=== PATIENT | male | born 1980 | race Caucasian/White ===

== ENCOUNTER 2023-10-21 03:23 | Emergency (ER) | payer BC, OTHER ==
[2023-10-21 04:15] LABS: BASOPHILS ABSOLUTE AUTO 0.04 K/uL (0.00-0.20); BASOPHILS PERCENT AUTO 0.5 % (0.0-1.0); EOSINOPHILS ABSOLUTE AUTO 0.22 K/uL (0.00-0.45); EOSINOPHILS PERCENT AUTO 2.9 % (0.0-6.0); HEMATOCRIT 42.1 % (42.0-52.0); HEMOGLOBIN 14.9 g/dL (14.0-18.0); IMMATURE GRAN ABSOLUTE AUTO 0.03 K/uL (0.00-0.05); IMMATURE GRAN PERCENT AUTO 0.4 % (0.0-0.4); LYMPHOCYTES ABSOLUTE AUTO 2.02 K/uL (1.00-4.80); LYMPHOCYTES PERCENT AUTO 26.3 % (24.0-44.0); MEAN CORPUSCULAR HEMOGLOBIN 29.5 pg (28.0-32.0); MEAN CORPUSCULAR HGB CONC 35.4 g/dL (32.0-36.0); MEAN CORPUSCULAR VOLUME 83.4 fL (83.0-99.0); MEAN PLATELET VOLUME 9.6 fL (9.4-12.4); MONOCYTES ABSOLUTE AUTO 0.87 K/uL (0.00-0.80); MONOCYTES PERCENT AUTO 11.3 % (0.0-8.0); NEUTROPHILS ABSOLUTE AUTO 4.51 K/uL (1.80-7.70); NEUTROPHILS PERCENT AUTO 58.6 % (41.0-71.0); PLATELET COUNT,PLT 222 K/uL (150-400); RED BLOOD CELL COUNT 5.05 M/uL (4.52-5.90); WHITE BLOOD CELL COUNT,WBC 7.69 K/uL (3.9-11.3)
[2023-10-21 04:34] LABS: A/G RATIO 0.9 (0.9-1.6); ALBUMIN 3.9 g/dL (3.4-5.0); BILIRUBIN TOTAL 0.7 mg/dL (0.2-1.0); CALCIUM 8.8 mg/dL (8.5-10.1); CREATININE 1.1 mg/dL (0.8-1.3); EST CRCL DRUG DOSING (CG) 91.25 mL/min; POTASSIUM,K 3.7 mmol/L (3.5-5.1); PROTEIN TOTAL,TP 8.1 g/dL (6.4-8.2)
[2023-10-21] MEDS: Iopamidol 755 MG/ML 500 ML Multipack Bottle IVPUSH STA (04:59)
[2023-10-21] MEDS: Amoxicillin/Clavulanate K 875-125 MG Tab PO ONE (05:43)
== END 2023-10-21 05:47 | disposition home or self-care (01) ==
LOC: MW.ED 03:23
DX: K57.32 Diverticulitis of large intestine without perforation or abscess without bleeding (principal); F17.210 Nicotine dependence, cigarettes, uncomplicated; Z79.899 Other long term (current) drug therapy
CPT/HCPCS: 36415; 74177; 80053; 85025; 99284; A9270; Q9967

== ENCOUNTER 2023-11-06 11:45 | Emergency (ER) | payer OTHER ==
[2023-11-06] MEDS: Sodium Chloride 0.9% 1,000 ML IV STA (13:12)
[2023-11-06 13:17] LABS: BASOPHILS ABSOLUTE AUTO 0.02 K/uL (0.00-0.20); BASOPHILS PERCENT AUTO 0.2 % (0.0-1.0); EOSINOPHILS ABSOLUTE AUTO 0.27 K/uL (0.00-0.45); EOSINOPHILS PERCENT AUTO 2.8 % (0.0-6.0); HEMOGLOBIN 14.6 g/dL (14.0-18.0); IMMATURE GRAN ABSOLUTE AUTO 0.02 K/uL (0.00-0.05); IMMATURE GRAN PERCENT AUTO 0.2 % (0.0-0.4); LYMPHOCYTES ABSOLUTE AUTO 1.13 K/uL (1.00-4.80); LYMPHOCYTES PERCENT AUTO 11.7 % (24.0-44.0); MEAN CORPUSCULAR HEMOGLOBIN 29.7 pg (28.0-32.0); MEAN CORPUSCULAR HGB CONC 34.8 g/dL (32.0-36.0); MEAN CORPUSCULAR VOLUME 85.5 fL (83.0-99.0); MEAN PLATELET VOLUME 9.6 fL (9.4-12.4); MONOCYTES ABSOLUTE AUTO 1.26 K/uL (0.00-0.80); MONOCYTES PERCENT AUTO 13.1 % (0.0-8.0); NEUTROPHILS ABSOLUTE AUTO 6.95 K/uL (1.80-7.70); PLATELET COUNT,PLT 251 K/uL (150-400); RED BLOOD CELL COUNT 4.91 M/uL (4.52-5.90); WHITE BLOOD CELL COUNT,WBC 9.65 K/uL (3.9-11.3)
[2023-11-06 13:51] LABS: A/G RATIO 0.7 (0.9-1.6); ALBUMIN 3.2 g/dL (3.4-5.0); CALCIUM 9.1 mg/dL (8.5-10.1); CARBON DIOXIDE,CO2 26.7 mmol/L (21.0-32.0); CREATININE 1.2 mg/dL (0.8-1.3); EST CRCL DRUG DOSING (CG) 81.01 mL/min; POTASSIUM,K 3.8 mmol/L (3.5-5.1); PROTEIN TOTAL,TP 7.6 g/dL (6.4-8.2)
== END 2023-11-06 14:24 | disposition home or self-care (01) ==
LOC: MW.ED 11:45
DX: R19.7 Diarrhea, unspecified (principal); Z75.8 Other problems related to medical facilities and other health care
CPT/HCPCS: 36415; 80053; 83690; 85025; 96360; 99284; J7030

== ENCOUNTER 2023-11-17 20:33 | Emergency (ER) | payer OTHER ==
[2023-11-17 21:19] LABS: BASOPHILS ABSOLUTE AUTO 0.02 K/uL (0.00-0.20); BASOPHILS PERCENT AUTO 0.2 % (0.0-1.0); EOSINOPHILS PERCENT AUTO 4.7 % (0.0-6.0); HEMATOCRIT 36.9 % (42.0-52.0); HEMOGLOBIN 12.7 g/dL (14.0-18.0); IMMATURE GRAN ABSOLUTE AUTO 0.07 K/uL (0.00-0.05); IMMATURE GRAN PERCENT AUTO 0.7 % (0.0-0.4); LYMPHOCYTES ABSOLUTE AUTO 1.75 K/uL (1.00-4.80); LYMPHOCYTES PERCENT AUTO 16.5 % (24.0-44.0); MEAN CORPUSCULAR HEMOGLOBIN 29.1 pg (28.0-32.0); MEAN CORPUSCULAR HGB CONC 34.4 g/dL (32.0-36.0); MEAN CORPUSCULAR VOLUME 84.6 fL (83.0-99.0); MEAN PLATELET VOLUME 8.9 fL (9.4-12.4); MONOCYTES ABSOLUTE AUTO 1.11 K/uL (0.00-0.80); MONOCYTES PERCENT AUTO 10.4 % (0.0-8.0); NEUTROPHILS ABSOLUTE AUTO 7.18 K/uL (1.80-7.70); NEUTROPHILS PERCENT AUTO 67.5 % (41.0-71.0); PLATELET COUNT,PLT 341 K/uL (150-400); RED BLOOD CELL COUNT 4.36 M/uL (4.52-5.90); WHITE BLOOD CELL COUNT,WBC 10.63 K/uL (3.9-11.3)
[2023-11-17 21:41] LABS: A/G RATIO 0.6 (0.9-1.6); ALBUMIN 2.5 g/dL (3.4-5.0); BILIRUBIN TOTAL 0.4 mg/dL (0.2-1.0); CALCIUM 8.7 mg/dL (8.5-10.1); CARBON DIOXIDE,CO2 27.4 mmol/L (21.0-32.0); CREATININE 1.3 mg/dL (0.8-1.3); EST CRCL DRUG DOSING (CG) 77.21 mL/min; POTASSIUM,K 3.6 mmol/L (3.5-5.1); PROTEIN TOTAL,TP 6.9 g/dL (6.4-8.2)
== END 2023-11-17 22:49 | disposition home or self-care (01) ==
LOC: MW.ED 20:33
DX: R19.7 Diarrhea, unspecified (principal)
CPT/HCPCS: 36415; 80053; 85025; 99284

== ENCOUNTER 2023-11-23 21:37 | Inpatient (IN) | payer OTHER ==
[2023-11-23] MEDS: Sodium Chloride 0.9% 10 ML Syringe FLUSH PRN (22:32)
[2023-11-23] MEDS: Sodium Chloride 0.9% 2.5 ML Syringe FLUSH PRN (22:32)
[2023-11-23] MEDS: Sodium Chloride 0.9% 1,000 ML IV STA ×2 (22:32→23:41)
[2023-11-23 22:33] LABS: HEMATOCRIT 33.1 % (42.0-52.0); HEMOGLOBIN 11.4 g/dL (14.0-18.0); MEAN CORPUSCULAR HEMOGLOBIN 29.2 pg (28.0-32.0); MEAN CORPUSCULAR HGB CONC 34.4 g/dL (32.0-36.0); MEAN CORPUSCULAR VOLUME 84.7 fL (83.0-99.0); MEAN PLATELET VOLUME 8.8 fL (9.4-12.4); PLATELET COUNT,PLT 398 K/uL (150-400); RED BLOOD CELL COUNT 3.91 M/uL (4.52-5.90)
[2023-11-23 23:04] LABS: A/G RATIO 0.5 (0.9-1.6); ALBUMIN 2.1 g/dL (3.4-5.0); BILIRUBIN TOTAL 0.5 mg/dL (0.2-1.0); CALCIUM 8.6 mg/dL (8.5-10.1); CARBON DIOXIDE,CO2 27.9 mmol/L (21.0-32.0); CREATININE 1.3 mg/dL (0.8-1.3); EST CRCL DRUG DOSING (CG) 77.21 mL/min; POTASSIUM,K 3.5 mmol/L (3.5-5.1); PROTEIN TOTAL,TP 6.7 g/dL (6.4-8.2)
[2023-11-23 23:08] LABS: BAND PERCENT MAN 17 %; LYMPHOCYTES ABSOLUTE MAN 1.79 K/uL (1.00-4.80); LYMPHOCYTES PERCENT MAN 16 % (24-44); MONOCYTES ABSOLUTE MAN 2.13 K/uL (0.00-0.80); MONOCYTES PERCENT MAN 19 % (0-8); SEG NEUTROPHILS PERCENT MAN 42 % (41-71)
[2023-11-23 23:09] LABS: EOSINOPHILS ABSOLUTE MAN 0.45 K/uL (0.00-0.45); EOSINOPHILS PERCENT MAN 4 % (0-6); METAMYELOCYTE ABSOLUTE MAN 0.11; METAMYELOCYTE PERCENT MAN 1 %; MYELOCYTE ABSOLUTE MAN 0.11; MYELOCYTE PERCENT MAN 1 %
[2023-11-23 23:19] LABS: LACTIC ACID 3.4 mmol/L (0.4-2.0)
[2023-11-23] MEDS: Iopamidol 755 MG/ML 500 ML Multipack Bottle IVPUSH ONE (23:32)
[2023-11-24] MEDS ORDERED: Morphine 2 MG/ML SYRINGE IVPUSH PRN (02:04)
[2023-11-24 02:59] LABS: APPEARANCE,URINE CLEAR; BILIRUBIN,URINE NEGATIVE (NEGATIVE); COLOR,URINE YELLOW; GLUCOSE,URINE NEGATIVE (NEGATIVE); KETONES,URINE NEGATIVE (NEGATIVE); LEUKOCYTE ESTERASE,URINE NEGATIVE (NEGATIVE); NITRITE,URINE NEGATIVE (NEGATIVE); OCCULT BLOOD,URINE NEGATIVE (NEGATIVE); PH,URINE 5.5 (5.0-8.0); PROTEIN,URINE NEGATIVE (NEGATIVE); UROBILINOGEN,URINE 0.2 EU/dL (<2.0)
[2023-11-24] MEDS: Sodium Chloride 0.9% 1,000 ML IV ONE (03:04)
[2023-11-24] MEDS: Sodium Chloride 0.9% 1,000 ML IV SCH (04:22)
[2023-11-24 06:03] LABS: HEMATOCRIT 29.6 % (42.0-52.0); HEMOGLOBIN 10.2 g/dL (14.0-18.0); MEAN CORPUSCULAR HEMOGLOBIN 29.2 pg (28.0-32.0); MEAN CORPUSCULAR HGB CONC 34.5 g/dL (32.0-36.0); MEAN CORPUSCULAR VOLUME 84.8 fL (83.0-99.0); MEAN PLATELET VOLUME 8.5 fL (9.4-12.4); PLATELET COUNT,PLT 369 K/uL (150-400); RED BLOOD CELL COUNT 3.49 M/uL (4.52-5.90)
[2023-11-24 06:21] LABS: CALCIUM 7.9 mg/dL (8.5-10.1); CARBON DIOXIDE,CO2 26.3 mmol/L (21.0-32.0); EST CRCL DRUG DOSING (CG) 100.38 mL/min; POTASSIUM,K 3.2 mmol/L (3.5-5.1)
[2023-11-24 06:56] LABS: BAND ABSOLUTE MAN 2.22; BAND PERCENT MAN 22 %; EOSINOPHILS PERCENT MAN 2 % (0-6); LYMPHOCYTES ABSOLUTE MAN 2.02 K/uL (1.00-4.80); LYMPHOCYTES PERCENT MAN 20 % (24-44); MONOCYTES ABSOLUTE MAN 2.12 K/uL (0.00-0.80); MONOCYTES PERCENT MAN 21 % (0-8); SEG NEUTROPHILS ABSOLUTE MAN 3.54 K/uL (1.80-7.70); SEG NEUTROPHILS PERCENT MAN 35 % (41-71)
[2023-11-24] MEDS: Potassium Chloride 100 ML IV SCH (08:56)
[2023-11-24] MEDS: Pantoprazole 40 MG in Sodium Chloride 0.9% 10 ML IVPUSH SCH (10:15)
[2023-11-24] MEDS ORDERED: Melatonin 3 MG Tab PO PRN (12:43)
[2023-11-24] MEDS: methylPREDNISolone Sodium Succinate 40 MG/1 ML SDV IVPUSH SCH (15:12)
[2023-11-25] MEDS: Acetaminophen 325 MG Tab PO PRN (03:00)
[2023-11-25 05:57] LABS: HEMATOCRIT 30.7 % (42.0-52.0); HEMOGLOBIN 10.3 g/dL (14.0-18.0); MEAN CORPUSCULAR HEMOGLOBIN 28.6 pg (28.0-32.0); MEAN CORPUSCULAR HGB CONC 33.6 g/dL (32.0-36.0); MEAN CORPUSCULAR VOLUME 85.3 fL (83.0-99.0); MEAN PLATELET VOLUME 8.6 fL (9.4-12.4); PLATELET COUNT,PLT 380 K/uL (150-400); WHITE BLOOD CELL COUNT,WBC 9.95 K/uL (3.9-11.3)
[2023-11-25 06:34] LABS: A/G RATIO 0.4 (0.9-1.6); BILIRUBIN TOTAL 0.5 mg/dL (0.2-1.0); C-REACTIVE PROTEIN 10.52 mg/dL (<0.3); CALCIUM 8.5 mg/dL (8.5-10.1); CARBON DIOXIDE,CO2 26.6 mmol/L (21.0-32.0); CREATININE 0.9 mg/dL (0.8-1.3); EST CRCL DRUG DOSING (CG) 111.53 mL/min; MAGNESIUM 2.1 mg/dL (1.8-2.4); POTASSIUM,K 3.8 mmol/L (3.5-5.1); PROTEIN TOTAL,TP 6.7 g/dL (6.4-8.2)
[2023-11-25 06:42] LABS: BAND ABSOLUTE MAN 1.29; BAND PERCENT MAN 13 %; LYMPHOCYTES ABSOLUTE MAN 1.09 K/uL (1.00-4.80); LYMPHOCYTES PERCENT MAN 11 % (24-44); MONOCYTES PERCENT MAN 6 % (0-8); SEG NEUTROPHILS ABSOLUTE MAN 6.97 K/uL (1.80-7.70); SEG NEUTROPHILS PERCENT MAN 70 % (41-71)
[2023-11-25] MEDS: Ondansetron 4 MG Tab.DIS PO PRN (15:36)
[2023-11-25] MEDS: methylPREDNISolone Sodium Succinate 40 MG/1 ML SDV IVPUSH SCH (21:04)
[2023-11-26 05:40] LABS: HEMATOCRIT 28.3 % (42.0-52.0); HEMOGLOBIN 9.6 g/dL (14.0-18.0); MEAN CORPUSCULAR HEMOGLOBIN 28.9 pg (28.0-32.0); MEAN CORPUSCULAR HGB CONC 33.9 g/dL (32.0-36.0); MEAN CORPUSCULAR VOLUME 85.2 fL (83.0-99.0); MEAN PLATELET VOLUME 8.9 fL (9.4-12.4); NRBC ABSOLUTE 0.02 K/uL (0.00-0.02); NRBC PERCENT 0.2 /100WBC (0.0-0.2); PLATELET COUNT,PLT 381 K/uL (150-400); RED BLOOD CELL COUNT 3.32 M/uL (4.52-5.90); WHITE BLOOD CELL COUNT,WBC 10.43 K/uL (3.9-11.3)
[2023-11-26 06:12] LABS: A/G RATIO 0.5 (0.9-1.6); BILIRUBIN TOTAL 0.3 mg/dL (0.2-1.0); CALCIUM 8.2 mg/dL (8.5-10.1); CARBON DIOXIDE,CO2 28.9 mmol/L (21.0-32.0); EST CRCL DRUG DOSING (CG) 100.38 mL/min; PROTEIN TOTAL,TP 6.2 g/dL (6.4-8.2)
[2023-11-26 06:24] LABS: BAND ABSOLUTE MAN 1.67; BAND PERCENT MAN 16 %; LYMPHOCYTES ABSOLUTE MAN 1.36 K/uL (1.00-4.80); LYMPHOCYTES PERCENT MAN 13 % (24-44); MONOCYTES ABSOLUTE MAN 1.04 K/uL (0.00-0.80); MONOCYTES PERCENT MAN 10 % (0-8); SEG NEUTROPHILS ABSOLUTE MAN 6.36 K/uL (1.80-7.70); SEG NEUTROPHILS PERCENT MAN 61 % (41-71)
[2023-11-26] MEDS: Pantoprazole 40 MG Tab.CR PO SCH (06:54)
== END 2023-11-26 14:20 | disposition home or self-care (01) | DRG 379 ==
LOC: MW.ED 21:37 → MW.MS 11-24 01:26
PROVIDERS: ADMIT Family Medicine; ATTEND Family Medicine
DX: K92.1 Melena (principal); F41.9 Anxiety disorder, unspecified; F32.A Depression, unspecified; M54.9 Dorsalgia, unspecified; G89.29 Other chronic pain; F17.210 Nicotine dependence, cigarettes, uncomplicated
CPT/HCPCS: 36415; 74177; 74177-26; 80048; 80053; 81003; 82947; 83605; 83690; 83735; 85025; 85652; 86140; 87045; 87046; 87177; 87209; 87324; 87328; 87329; 87389; 87449; 87899; 96360; 99284; 99285-25; A9270-GY; J2470; J2919; J3480; J3490; J7030; Q9967